=== PATIENT | male | born 1990 | race Caucasian/White ===

== ENCOUNTER 2016-10-17 19:41 | Emergency (ER) | payer OTHER ==
[~2016-10-17] VITALS: Ht 177.8 cm; Wt 107.5 kg
[2016-10-17 19:43] VITALS: Ht 177.8 cm; Wt 107.5 kg
[2016-10-17] MEDS ORDERED: predniSONE 20 MG TAB PO ONE (20:00)
[2016-10-17] MEDS ORDERED: DIPHENHYDRAMINE 25 MG CAP PO ONE (20:00)
[2016-10-17] MEDS ORDERED: PRED20TA PO (20:42)
[2016-10-17] MEDS ORDERED: BEN25 PO (20:42)
[2016-10-17 21:02] VITALS: BP 132/81; PULSE 89; RESP 18; TEMP 98.4
--- NOTE | 2016-10-18 21:46 | ERD ---
ER Documentation Chief Complaint Date/Time DATE: 10/18/16 TIME: 21:44 Chief Complaint allergic reactionto unknown 1 hour ago, no sob, swelling ear, lips, HPI This is a 26-year-old male presenting to emergency department for possible allergic reaction. Patient states he ate raspberries and peaches 1 hour ago and soon developed swelling of bilateral ears, lips and pruritic rash to posterior neck. Patient denies any difficulty swallowing or drooling. No difficulty breathing or shortness of breath. No wheezing. No cough. Patient has no known allergies. Did not take any medications at home. ROS All systems reviewed and are negative except as per history of present illness. Medications Home Meds Active Scripts Diphenhydramine Hcl* (Benadryl*) 25 Mg Cap, 25 MG PO Q6, #15 CAP Prov:CARMELA NIEVES NP 10/17/16 Prednisone* (Prednisone*) 20 Mg Tab, 40 MG PO DAILY for 4 Days, TAB Prov:CARMELA NIEVES NP 10/17/16 Allergies Allergies: Coded Allergies: No Known Allergy (Unverified , 10/17/16) PMhx/Soc Medical and Surgical Hx: pt denies Medical Hx, pt denies Surgical Hx Hx Alcohol Use: Yes (OCCASSIONAL) Hx Substance Use: No Hx Tobacco Use: No Smoking Status: Never smoker Physical Exam Vitals Vital Signs Date Time Temp Pulse Resp B/P Pulse Ox O2 Delivery O2 Flow Rate FiO2 10/17/16 21:02 98.4 89 18 132/81 95 Room Air 10/17/16 19:43 98.8 86 20 157/67 97 Physical Exam Const: Alert, no acute distress Head: Atraumatic Eyes: Normal Conjunctiva ENT: Normal External Ears, Nose and Mouth. Neck: Full range of motion..~ No meningismus. Resp: Clear to auscultation bilaterally Cardio: Regular rate and rhythm, no murmurs Abd: Soft, non tender, non distended. Normal bowel sounds Skin: No petechiae or rashes Back: No midline or flank tenderness Ext: No cyanosis, or edema Neur: Awake and alert Psych: Normal Mood and Affect Results 24 hrs Current Medications Medications (Trade) Dose Ordered Sig/Johnson Route PRN Reason Start Time Stop Time Status Last Admin Dose Admin Prednisone (Prednisone) 60 mg ONCE ONCE PO 10/17/16 20:00 10/17/16 20:01 DC 10/17/16 20:07 Diphenhydramine HCl (Benadryl) 25 mg ONCE ONCE PO 10/17/16 20:00 10/17/16 20:01 DC 10/17/16 20:07 Procedures/MDM MDM: This is a 26-year-old male presenting to the ER with possible allergic reaction. Patient developed swelling and itching of lips, face, tongue and bilateral ears after ingesting raspberries and peaches. No skin rash. No signs or symptoms of respiratory distress. Oxygen saturation 97% on room air. No wheezing. Patient is talking in complete sentences. No angioedema. Patient given Benadryl 25mg and prednisone 60 mg while in the ED. Patient is alert and oriented. Vital signs are stable. Patient appears in no acute distress. Low suspicion for anaphylactic reaction. Patient's diagnosis is allergic reaction. Patient is appropriate for outpatient management will be given prescription for Benadryl and prednisone. Instructed patient to follow-up with primary care provider in the next 1 week for reassessment and additional management. Return to ED for any high fever, chest pain, difficulty breathing, shortness breath, wheezing, vomiting, diarrhea, abdominal pain or any new or worsening symptoms. Patient verbalizes understanding. All questions answered at discharge. Departure Diagnosis: Primary Impression: Allergic reaction Encounter type: initial encounter Qualified Code: T78.40XA - Allergic reaction, initial encounter Condition: Stable Patient Instructions: First Aid: Allergic Reactions Referrals: [facility] YOU HAVE RECEIVED A MEDICAL SCREENING EXAM AND THE RESULTS INDICATE THAT YOU DO NOT HAVE A CONDITION THAT REQUIRES URGENT TREATMENT IN THE EMERGENCY DEPARTMENT. FURTHER EVALUATION AND TREATMENT OF YOUR CONDITION CAN WAIT UNTIL YOU ARE SEEN IN YOUR DOCTORS OFFICE WITHIN THE NEXT 1-2 DAYS. IT IS YOUR RESPONSIBILITY TO MAKE AN APPOINTMENT FOR FOLOW-UP CARE. IF YOU HAVE A PRIMARY DOCTOR --you should call your primary doctor and schedule an appointment IF YOU DO NOT HAVE A PRIMARY DOCTOR YOU CAN CALL OUR PHYSICIAN REFERRAL HOTLINE AT IF YOU CAN NOT AFFORD TO SEE A PHYSICIAN YOU CAN CHOSE FROM THE FOLLOWING [facility] [address] [facility]. [facility] [address] [facility] [facility] [address] [facility] [facility] [address] [facility] [facility] [address] [facility] [address] [facility]. [facility] YOU HAVE RECEIVED A MEDICAL SCREENING EXAM AND THE RESULTS INDICATE THAT YOU DO NOT HAVE A CONDITION THAT REQUIRES URGENT TREATMENT IN THE EMERGENCY DEPARTMENT. FURTHER EVALUATION AND TREATMENT OF YOUR CONDITION CAN WAIT UNTIL YOU ARE SEEN IN YOUR DOCTORS OFFICE WITHIN THE NEXT 1-2 DAYS. IT IS YOUR RESPONSIBILITY TO MAKE AN APPOINTMENT FOR FOLOW-UP CARE. IF YOU HAVE A PRIMARY DOCTOR --you should call your primary doctor and schedule and appointment IF YOU DO NOT HAVE A PRIMARY DOCTOR YOU CAN CALL OUR PHYSICIAN REFERRAL HOTLINE AT . IF YOU CAN NOT AFFORD TO SEE A PHYSICIAN YOU CAN CHOSE FROM THE FOLLOWING [facility] INSTITUTIONS: [facility] [address] [place] [address] [facility] [address] [place], [place] [id number] [place] [address] + [facility] [address] [place] [address] Additional Instructions: Call your primary care doctor TOMORROW for an appointment during the next 2-3 days.See the doctor sooner or return here if your condition worsens before your appointment time. Return to ED for any high fever, chest pain, difficulty breathing, shortness breath, wheezing, vomiting, diarrhea, abdominal pain or any new or worsening symptoms. CARMELA NIEVES NP Oct 18, 2016 21:46
== END 2016-10-17 21:04 | disposition home or self-care (01) ==
LOC: FTE 19:41
DX: R21 Rash and other nonspecific skin eruption (principal)
CPT/HCPCS: 99283; J7512